=== PATIENT | male | born 1950 | race African-American/Black ===

== ENCOUNTER 2018-07-09 17:24 | Inpatient (IN) | payer OTHER ==
[~2018-07-09] VITALS: Ht 185.4 cm; Wt 74.5 kg
[2018-07-09] VITALS (31 sets, daily range): BP systolic 105–144; BP diastolic 53–84
[2018-07-09 17:34] LABS: BE(vivo) -11.7 mmol/L (-2 to +3); HCO3 12.7 mmol/L (22.0-26.0); PO2 94.5 mmHg (80.0-100.0); pH 7.374 (7.360-7.450); sO2 97.3 % (92.0-98.0)
[2018-07-09 17:35] LABS: PCO2 22.2 mmHg (35.0-45.0)
[2018-07-09 17:42] LABS: ABSOLUTE NEUTROPHILS 12.5 thou/uL (1.4-8.2); BASOPHILS 0.3 % (0.0-2.0); LYMPHOCYTES 9.9 % (24.0-44.0); MCH 31.7 pg (26.0-34.0); MCHC 30.2 g/dL (28.0-37.0); PLATELET COUNT 176 thou/uL (150-400); POLYS 83.8 % (36.0-66.0); RBC 1.48 mil/uL (4.50-6.00); WBC 14.9 thou/uL (4.0-11.0)
[2018-07-09 17:46] LABS: HEMATOCRIT 15.6 % (42.0-52.0); HEMOGLOBIN 4.7 gm/dL (14.0-18.0)
[2018-07-09 17:54] LABS: CALCIUM 7.5 mg/dL (8.5-10.1); CREATININE 1.7 mg/dL (0.7-1.3); POTASSIUM 3.3 mmol/L (3.5-5.1)
[2018-07-09 17:58] LABS: APTT 23.8 Seconds (24.5-32.8); INR 1.3; PROTIME 13.1 Seconds (9.3-11.4)
[2018-07-09 18:03] LABS: TROPONIN-I 0.07 ng/mL (<0.06)
--- NOTE | 2018-07-09 18:11 | EKG ---
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: [place] : 1950 Requested By: Koby Nicole Order Number: [id number] MD: Rene Gonzalez Measurements Intervals Badger Rate: 130 P: 76 NV: 121 QRS: 31 QRSD: 90 T: 233 QT: 329 QTc: 484 Interpretive Statements Sinus tachycardia Probable left atrial enlargement Repol abnrm suggests ischemia, diffuse leads No previous ECG available for comparison Electronically Signed On 07-09-2018 18:11:08 CDT by Rene Gonzalez [email or web address] ��������������������������������������������� <ELECTRONICALLY SIGNED> ���������������������������������������� By: Rene Gonzalez MD, [facility] ��������������������������������������������� 07/09/18 1811 1724 1724 Rene Gonzalez MD, FACC /EPI
[2018-07-09 21:44] LABS: HEMATOCRIT 26.5 % (42.0-52.0); HEMOGLOBIN 8.7 gm/dL (14.0-18.0)
[2018-07-10] VITALS (62 sets, daily range): BP systolic 106–159; BP diastolic 45–94
[2018-07-10 03:10] LABS: CALCIUM 6.6 mg/dL (8.5-10.1); CREATININE 1.2 mg/dL (0.7-1.3); HEMATOCRIT 20.9 % (42.0-52.0); HEMOGLOBIN 7.1 gm/dL (14.0-18.0); MAGNESIUM 1.6 mg/dL (1.8-2.4); POTASSIUM 3.4 mmol/L (3.5-5.1); TROPONIN-I 0.07 ng/mL (<0.06)
--- NOTE | 2018-07-10 03:21 | NUR ---
ARRIVED IN ICU FROM ER AT 2044. PT ADMITTED FOR GI BLEED. PT HAD ONE MAROON BM BEFORE ARRIVING IN THE ICU AND HAS NOT HAD ANY EVIDENCE OF BLEEDING SINCE THEN. PT RECEIVED 3 UNITS PRBC AND 2 UNITS FFP TOTAL. HGB HAD IMPROVED TO 8.7 AFTER THE TRANSFUSIONS, AND WAS 7.1 WHEN CHECKED ALMOST AN HOUR AGO. WILL CHECK HGB AGAIN IN 3 HOURS. EGD DONE LAST NIGHT AFTER ARRIVAL TO THE ICU. PT RECOVERED WELL. VITAL SIGNS STABLE AND A&O POST PROCEDURE. ON PROTONIX GTT. UPDATED SISTER, KELLY, ON PT'S CONDITION. WILL CONTINUE TO MONITOR.
[2018-07-10 05:54] LABS: HEMATOCRIT 25.6 % (42.0-52.0); HEMOGLOBIN 8.5 gm/dL (14.0-18.0); MCHC 33.3 g/dL (28.0-37.0); RBC 2.75 mil/uL (4.50-6.00); RDW 16.5 % (10.5-14.5); WBC 17.4 thou/uL (4.0-11.0)
[2018-07-10 06:05] LABS: INR 1.1
[2018-07-10 06:06] LABS: MCV 93.2 fL (80.0-100.0)
[2018-07-10 11:23] LABS: ALBUMIN 1.9 g/dL (3.4-5.0); DIRECT BILIRUBIN 0.2 mg/dL (<0.1-0.3); MAGNESIUM 2.1 mg/dL (1.8-2.4); POTASSIUM 3.4 mmol/L (3.5-5.1); TOTAL BILIRUBIN 0.6 mg/dL (<0.1-1.0); TOTAL PROTEIN 4.3 g/dL (6.4-8.2)
--- NOTE | 2018-07-10 11:29 | NUR ---
CONSULTED TO PLACE A PICC FOR A PATIENT IN ICU NEEDING ACCESS. ORDER AND CONSENT NOTED. THE PROCEDURE WELL BENIFITS AND RISK FOR DVT AND INFECTION DISCUSSED AND HE VERBALIZED UNDERSTANDING. THE LEFT UPPER ARM BRACHIAL WAS WIDLEY PATENT. A #5F TRIPLE LUMEN POWER PICC WAS PLACED AFTER A BEDSIDE TIMEOUT WAS COMPLETE. PICC WAS TRIMMED TO 42CM AND ADVANCED WITHOUT DIFFICULTY PER HOSPITAL POLICY. A STAT CHEST XRAY CONFIRMED LINE TO BE IN PROPER POSITION IN THE LOWER SVC. LINE REALEASED FOR USE
[2018-07-10 12:06] LABS: ABSOLUTE NEUTROPHILS 10.6 thou/uL (1.4-8.2); BASOPHILS 0.5 % (0.0-2.0); EOSINOPHILS 0.1 % (0.0-3.0); HEMATOCRIT 20.8 % (42.0-52.0); HEMOGLOBIN 7.1 gm/dL (14.0-18.0); LYMPHOCYTES 14.1 % (24.0-44.0); MCH 31.2 pg (26.0-34.0); MCHC 34.2 g/dL (28.0-37.0); MCV 91.2 fL (80.0-100.0); MONOCYTES 6.9 % (1.0-8.0); PLATELET COUNT 116 thou/uL (150-400); POLYS 78.4 % (36.0-66.0); RBC 2.29 mil/uL (4.50-6.00); RDW 16.4 % (10.5-14.5); WBC 13.5 thou/uL (4.0-11.0)
[2018-07-10 12:07] LABS: CALCIUM 6.8 mg/dL (8.5-10.1)
--- NOTE | 2018-07-10 15:54 | NUR ---
PT IS ALERT TO SELF AND PLACE. FOREGETFULL ON THE YEAR. FAMILY AT BEDSIDE FOR SUPPORT. CENTRAL LINE PLACED TODAY PER IV TEAM. LABS DRAWN. LUNGS ARE CLEAR ON 3 LITERS NASAL CANULA. 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 ON CLEAR LIQUID DIET TODAY. JOHNSON TO DD WITH YELLOW URINE PRESENT. SCDS ON BILATERAL. SLEEPING ON AND OFF TODAY. FAMILY AT BEDSIDE FOR SUPPORT. TODAY. NO CONCERNS OR ISSUES NOTED AT THIS TIME. WILL CONTINUE TO ASSESS AND MONITOR PER NURSING
--- NOTE | 2018-07-10 17:51 | NUR ---
met with patient who admits with GI Bleed. He reports year 2018, and he is at [facility]. He reports PCP is Dr Ventura. Patient recalls being at [facility] recently and reports he "discharged himself." He reports he called a friend at 0400 am to take him home. 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 Sp with sister to verify information. Sister Louisa reports sometimes she stays with patient. She reports he did leave AMA from [facility]. Sister wants medical team to be aware he is a daily drinker and may become agitated at hospital. Updated RN. Sister reports to call her she wants him to remain in hospital to get well. Sister cell [phone]. Udpated RN. 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 Sister supportive, casemgt following.
[2018-07-10 18:47] LABS: BASOPHILS 0.6 % (0.0-2.0); RBC 2.19 mil/uL (4.50-6.00)
[2018-07-10 18:48] LABS: EOSINOPHILS 0.2 % (0.0-3.0); HEMATOCRIT 20.1 % (42.0-52.0); HEMOGLOBIN 6.7 gm/dL (14.0-18.0); LYMPHOCYTES 16.8 % (24.0-44.0); MCH 30.7 pg (26.0-34.0); MCHC 33.6 g/dL (28.0-37.0); MCV 91.5 fL (80.0-100.0); MONOCYTES 7.4 % (1.0-8.0); PLATELET COUNT 119 thou/uL (150-400); RDW 16.5 % (10.5-14.5)
[2018-07-11] VITALS (14 sets, daily range): BP systolic 114–162; BP diastolic 61–96
[2018-07-11 01:29] LABS: HEMOGLOBIN 8.3 gm/dL (14.0-18.0)
--- NOTE | 2018-07-11 04:13 | NUR ---
0331 PT HAD 8 BEAT RUN VTACH. PT ASYMPTOMATIC, VSS. NO OTHER COMPLAINTS FROM PT
[2018-07-11 07:14] LABS: HEMATOCRIT 24.4 % (42.0-52.0); HEMOGLOBIN 8.2 gm/dL (14.0-18.0)
[2018-07-11 07:29] LABS: CREATININE 0.8 mg/dL (0.7-1.3); POTASSIUM 3.8 mmol/L (3.5-5.1)
--- NOTE | 2018-07-11 07:47 | NUR ---
PT ABLE TO REST THROUGHOUT SHIFT. CONTINUED WITH O2 THERAPY 3-4L PER NC. PT RECEIVED ONE UNIT OF PRBCs DURING SHIFT. PT SR/ST ON MONITOR. PT TOLERATING CLEAR LIQUIDS. PT CONTINUES ON MAINTENANCE IVF AND PROTONIX GTT. PT POTASSIUM REPLACED AND NOW STABLE.
--- NOTE | 2018-07-11 12:02 | NUR ---
Assumed care of patient at 0700. Patient resting in bed, c/o feeling hungry. Tolerating clear liquids of ice chips and popcicles. Denies nausea and abd pain. Continuing with Q6 H&H's, hopefully to advance diet if Hgb remains stable per GI service. Ok'd to move out of ICU. Report called to RN on CCU, patient to move to 204. IVF and protonix gtt continue.
[2018-07-11 15:16] LABS: HEMOGLOBIN 8.6 gm/dL (14.0-18.0)
--- NOTE | 2018-07-11 18:02 | NUR ---
AA0X2 REORIENTS EASILY. PLEASANT AND COOPERATIVE. C/O PAIN IN RIGHT ARM, RIGHT ARM FIRM AND EDEMATOUS. INCONTINENT OF LARGE AMT LIQUID MAROON FOWL ODOR STOOL. PROVIDED SHOWER. JOHNSON DISCONTINUED AND URINATED LARGE AMOUNT ON FLOOR. CLEAR LIQUID DIET. IV LEFT UPPER ARM.
[2018-07-11 22:17] LABS: HEMATOCRIT 22.6 % (42.0-52.0); HEMOGLOBIN 7.9 gm/dL (14.0-18.0)
--- NOTE | 2018-07-12 04:04 | NUR ---
RECEIVED PT. CARE AROUND 1920; PT. ON BED WITH O2 OFF; GOWN OFF; EDUCATED ABOUT CALLING BEFORE STANDING FROM BED; ST. UNDERSTANDING; DURING ASSESSMENT C/O PAIN OVER RUE; PRN PAIN MEDICATION GIVEN; IRRITABLE WHEN NOT ANSWERING QUESTIONS IMMEDIATELY; PAIN RE-ASSESSMENT; PT. SLEEPING; HH EARLY ON THE NIGHT 7.9; NO C/O HEADACHES OR DIZZINESS; PT. ABLE TO REST MOST OF THE NIGHT; VOID PER URINAL; ASSESSMENT CHARGED; FOLLOWING POC; MONITORING HH; WILL PASS ON REPORT.
[2018-07-12 04:15] VITALS: BP 151/96
[2018-07-12 04:17] LABS: CALCIUM 6.1 mg/dL (8.5-10.1); CREATININE 0.6 mg/dL (0.7-1.3)
[2018-07-12 04:18] LABS: HEMATOCRIT 22.4 % (42.0-52.0); HEMOGLOBIN 7.8 gm/dL (14.0-18.0); MCHC 34.9 g/dL (28.0-37.0); MCV 91.7 fL (80.0-100.0); RBC 2.45 mil/uL (4.50-6.00); RDW 15.9 % (10.5-14.5); WBC 8.3 thou/uL (4.0-11.0)
[2018-07-12 04:21] LABS: POTASSIUM 2.6 mmol/L (3.5-5.1)
[2018-07-12 07:41] VITALS: BP 143/74
[2018-07-12 09:11] LABS: CALCIUM 7.1 mg/dL (8.5-10.1); CREATININE 0.7 mg/dL (0.7-1.3); POTASSIUM 3.3 mmol/L (3.5-5.1)
[2018-07-12 09:12] LABS: MAGNESIUM 1.5 mg/dL (1.8-2.4)
[2018-07-12 10:15] LABS: HEMATOCRIT 25.2 % (42.0-52.0); HEMOGLOBIN 8.9 gm/dL (14.0-18.0)
[2018-07-12 12:34] VITALS: BP 151/91
[2018-07-12 16:23] VITALS: BP 112/70
--- NOTE | 2018-07-12 16:59 | NUR ---
ASSUMED CARE OF PT AT 0700. PT A&OX4, UP WITH STANDBY TO BATHROOM. PT HAD LOW MG AND POTASSIUM AND PLACED ON ELECTROLYTE PROTOCOL. LYTES BEING REPLACED. PT HAD POSITIONAL PICC LINE THAT FLUSHES AND DRAWS IF PT HAS ARM ABOVE HEAD. PT DID NOT HAVE BOWEL MOVEMENT TODAY. DIET ADVANCED TO SOFT, FIBER RESTRICTED BY GI. PT'S HBG VALUES IMPROVING. VITALS WITHIN NORMAL LIMITS AND PT WAS SINUS RHYTYM ON TELEMETRY. WILL CONT WITH POC.
[2018-07-12 17:04] LABS: MAGNESIUM 2.1 mg/dL (1.8-2.4); POTASSIUM 3.4 mmol/L (3.5-5.1)
[2018-07-12 18:13] VITALS: BP 136/82
[2018-07-12 19:13] VITALS: BP 136/82
--- NOTE | 2018-07-13 02:46 | NUR ---
ASSUMED CARE 0. VSS. ASSESSMENT CHARTED. A&OX4 SOMETIMES FORGETFUL. SR-ST WHEN MOVING. NO SIGNS OF BLEEDING. BI LAT KNEE PAIN CONTROLED WITH PRN PAIN MEDS PER EMAR. PT DENIES ANY SOA OR OTHER CONERNS. 1/2 NS AND ABX PER EMAR. POTASSIUM REPLACED PER PROTOCOL, REDRAW WITH LABS THIS AM. WILL CONTINUE TO MONITOR AND WITH POC.
[2018-07-13 03:27] LABS: HEMATOCRIT 23.9 % (42.0-52.0); HEMOGLOBIN 8.4 gm/dL (14.0-18.0); MCH 31.9 pg (26.0-34.0); MCHC 34.9 g/dL (28.0-37.0); MCV 91.3 fL (80.0-100.0); RBC 2.62 mil/uL (4.50-6.00); RDW 15.7 % (10.5-14.5); WBC 7.5 thou/uL (4.0-11.0)
[2018-07-13 03:31] LABS: CREATININE 0.8 mg/dL (0.7-1.3); POTASSIUM 3.6 mmol/L (3.5-5.1)
[2018-07-13 04:51] VITALS: BP 132/69
[2018-07-13 08:16] VITALS: BP 125/69
--- NOTE | 2018-07-13 12:34 | NUR ---
Patient wanting to leave. Dr. joel notified as well as CUSHION PADDER with GI. Right hand PIV removed. Left upper arm PICC line removed without difficulty. Catheter intact. Pt refused to sign the AMA paperwork. Pt escorted out by security. Patient had his cell phone and dry pan charger as well he was dressed in jeans, tennis shoes, and pt gown.
--- NOTE | 2018-07-13 14:52 | NUR ---
ASSUMED CARE OF PT AT O700. PT STATED HE WAS GOING HOME AND WAS TOLD THAT THE DOCTORS WOULD BE SEEING HIM TO DETERMINE IF HE COULD BE DISCHARGED. PT STATED THAT SOMEONE AT HIS HOUSE STOOL HIS MONEY AND THAT HE HAD A LOT ON HIS MIND. PT OFFERED, AND ACCEPTED [facility]. PT CONTINUED TO STATE THAT HE WAS LEAVING AND EACH TIME EDUCATION AND REORIENTATION PROVIDED. PT ASKED FOR HELP TO CALL HIS SISTER, HE WAS HAVING DIFFICULTY USING THE PHONES. THIS NURSE ALSO TALKED TO THE SISTER AND SHE STATED SHE WOULD NOT LET HIM COME BACK TO THE HOUSE IF HE LEFT AGAINST DOCTORS ORDERS. AT APPROX 1145 PT STATED HE WAS LEAVING AND WALKED OUT. THIS NURSE FOLLOWED HIM, AND TRIED TO GET HIM BACK TO ROOM. PT BECAME ANGRY. EXPLAINED THAT HE NEEDED HIS PICC LINE REMOVED BEFORE HE LEFT. SECURITY WAS CALLED AND PT CAME BACK TO ROOM WITH THEM. DR. FANG NOTIFIED AND SHE ORDERED PICC LINE REMOVED. JAKE SIMONS TALKED WITH PT ABOUT HIS DIAGNOSIS. ROGELIO VIRAMONTES REMOVED PICC LINE AND HAD PT SIGN AMA. SECURITY ESCORTED PT TO EXIT.
== END 2018-07-13 12:16 | disposition left against medical advice (07) | DRG 377 ==
LOC: EDBD 17:24 → ER 17:24 → ICU 19:14 → EROBS 19:14 → ICU 20:34 → 2N 07-11 12:23
PROVIDERS: Emergency Medicine; Hospitalist; Internal Medicine Gastroenterology; Nurse Practitioner Acute Care; ADMIT Internal Medicine
DX: K25.4 Chronic or unspecified gastric ulcer with hemorrhage (principal); J69.0 Pneumonitis due to inhalation of food and vomit; E87.0 Hyperosmolality and hypernatremia; D62 Acute posthemorrhagic anemia; G93.40 Encephalopathy, unspecified; E87.2 Acidosis; R63.4 Abnormal weight loss; M13.862 Other specified arthritis, left knee; M13.861 Other specified arthritis, right knee; M13.872 Other specified arthritis, left ankle and foot; M13.871 Other specified arthritis, right ankle and foot; F10.10 Alcohol abuse, uncomplicated; K26.9 Duodenal ulcer, unspecified as acute or chronic, without hemorrhage or perforation; E87.6 Hypokalemia; I10 Essential (primary) hypertension; K76.0 Fatty (change of) liver, not elsewhere classified; E78.5 Hyperlipidemia, unspecified; I25.10 Atherosclerotic heart disease of native coronary artery without angina pectoris; F17.210 Nicotine dependence, cigarettes, uncomplicated; Z53.21 Procedure and treatment not carried out due to patient leaving prior to being seen by health care provider; Z68.21 Body mass index [BMI] 21.0-21.9, adult; Z95.1 Presence of aortocoronary bypass graft; Z79.899 Other long term (current) drug therapy; Z88.0 Allergy status to penicillin; Z88.5 Allergy status to narcotic agent; Z88.8 Allergy status to other drugs, medicaments and biological substances
CPT/HCPCS: 10078; 10081; 27000; 62110; 62900